=== PATIENT | female | born 1945 | race Caucasian/White ===

== ENCOUNTER 2016-09-01 19:26 | Emergency (ER) | payer MEDICARE ==
[2016-09-01] MEDS ORDERED: DOXYCYCLINE HYCLATE 100 MG TABLET PO ONE (20:44)
[2016-09-01] MEDS ORDERED: ACETAMINOPHEN 325 MG TABLET PO ONE (20:45)
--- NOTE | 2016-09-01 20:46 | ER Document Report ---
ED Skin Rash/Insect Bite/Abscs - General Chief Complaint: Possible insect bite, nausea Stated Complaint: POSSIBLE INSECT BITE,NAUSEA,PAIN Time Seen by Provider: 09/01/16 20:26 Mode of Arrival: Ambulatory Information source: Patient Notes: 71-year-old female presents to ED for rash to the right top of her head. She states she started out with pain in the top of her head and behind her ears and right and for a number of years that her jawline yesterday and the rash appeared today. She has enlarged. TRAVEL OUTSIDE OF THE [place] IN LAST 30 DAYS: No - HPI Patient complains to provider of: Skin rash/lesion, Tender/swollen area Onset: Yesterday Onset/Duration: Gradual Quality of pain: Achy Severity: Moderate Pain Level: 4 Skin Character: Erythema, Rash, Tenderness Skin Temperature: Warm Quality of rash: Painful Exacerbated by: Denies Relieved by: Denies Similar symptoms previously: No Recently seen / treated by doctor: No - Related Data Allergies/Adverse Reactions: Sulfa (Sulfonamide Antibiotics) Allergy (Verified 04/09/15 15:28) Steroids Adverse Reaction (Uncoded 04/09/15 15:28) Uncontrolled Blood Glucose Past Medical History - General Information source: Patient - Social History Smoking Status: Never Smoker Cigarette use (# per day): No Chew tobacco use (# tins/day): No Smoking Education Provided: No Frequency of alcohol use: None Drug Abuse: None Lives with: Family Family History: Arthritis, CAD, DM, Hyperlipidemia, Hypertension, Thyroid Disfunction - Past Medical History Cardiac Medical History: Reports: Hx Coronary Artery Disease - HIGH CHOL, Hx Heart Attack - 2009, Hx Hypercholesterolemia, Hx Hypertension Pulmonary Medical History: Reports: Hx Bronchitis, Hx Pneumonia - 06/2009 EENT Medical History: Reports: None Neurological Medical History: Reports: None Endocrine Medical History: Reports: Hx Diabetes Mellitus Type 2 Renal/ Medical History: Reports: Other - bladder cancer Malignancy Medical History: Reports: Other - bladder GI Medical History: Reports: Hx Gastroesophageal Reflux Disease, Hx Ulcerative Colitis, Hx Endoscopy Musculoskeltal Medical History: Reports Hx Arthritis, Reports Hx Musculoskeletal Trauma Skin Medical History: Reports None Psychiatric Medical History: Reports: Hx Anxiety, Hx Depression Traumatic Medical History: Reports: Hx Spine Fracture Infectious Medical History: Reports: None Past Surgical History: Reports: Hx Breast Surgery - lumpectomy, Hx Cardiac Catheterization, Hx Cholecystectomy, Hx Genitourinary Surgery - bladder cancer removed, Hx Hysterectomy - PARTIAL, Hx Orthopedic Surgery - carpal tunnel left hand - Immunizations Hx Diphtheria, Pertussis, Tetanus Vaccination: Yes Hx Pneumococcal Vaccination: 06/24/09 Review of Systems - Review of Systems Constitutional: No symptoms reported EENT: No symptoms reported, Other - enlarged painful lymphnodes to bilateral in front and behind the ears. rash to top of head with cellulitis Cardiovascular: No symptoms reported Respiratory: No symptoms reported Gastrointestinal: No symptoms reported Genitourinary: No symptoms reported Female Genitourinary: No symptoms reported Musculoskeletal: No symptoms reported Skin: Rash - with cellulitis to top of forehead and 3.5 cm into hair line Hematologic/Lymphatic: No symptoms reported Neurological/Psychological: No symptoms reported -: Yes All other systems reviewed and negative Physical Exam - Vital signs Vitals: Temp Pulse BP Pulse Ox 98.3 F 67 129/48 H 96 09/01/16 19:34 09/01/16 19:34 09/01/16 19:34 09/01/16 19:34 Interpretation: Normal - General General appearance: Appears well, Alert - HEENT Head: Normocephalic, Atraumatic, Tenderness, Other - Enlarged lymph nodes also lymph nodes in the parotid area that are enlarged cellulitis with a rash to the forehead and 3-4 cm above the hairline Eyes: Normal Pupils: PERRL - Respiratory Respiratory status: No respiratory distress Chest status: Nontender Breath sounds: Normal Chest palpation: Normal - Cardiovascular Rhythm: Regular Heart sounds: Normal auscultation Murmur: No - Abdominal Inspection: Normal Distension: No distension Bowel sounds: Normal Tenderness: Nontender Organomegaly: No organomegaly - Back Back: Normal, Nontender - Extremities General upper extremity: Normal inspection, Nontender, Normal color, Normal ROM , Normal temperature General lower extremity: Normal inspection, Nontender, Normal color, Normal ROM , Normal temperature, Normal weight bearing. No: Bassam's sign - Neurological Neuro grossly intact: Yes Cognition: Normal Orientation: AAOx4 Phillips Coma Scale Eye Opening: Spontaneous Phillips Coma Scale Verbal: Oriented Phillips Coma Scale Motor: Obeys Commands Caitie Coma Scale Total: 15 Speech: Normal Motor strength normal: LUE, RUE, LLE, RLE Sensory: Normal - Psychological Associated symptoms: Normal affect, Normal mood - Skin Skin Temperature: Warm Skin Moisture: Dry Skin Color: Normal Location of irregularity: Face, Scalp, Other - enlarged painful lymphnodes to bilateral areas in front and behind the ears. rash to top of head with cellulitis Course - Re-evaluation Re-evalutation: 09/01/16 21:[address] Bee for the rash with tender and swollen lymph nodes. He stated that it was folliculitis and should be placed on doxycycline and antibiotic ointment to the area. - Vital Signs Vital signs: Temp Pulse Resp BP Pulse Ox 98.3 F 67 129/48 H 96 09/01/16 19:34 09/01/16 19:34 09/01/16 19:34 09/01/16 19:34 Discharge - Discharge Clinical Impression: Folliculitis Additional Instructions: Folliculitis You have a skin infection called folliculitis. This occurs when bacteria infect the hair follicles of the skin. Typically, redness and small pustules are found where hair shafts enter the skin. Allergy, surface irritation, shaving, and exposure to hot tubs predispose to folliculitis. The usual treatment is antibiotic ointment, sometimes combined with cortisone-type medication. Warm compresses are often used. If the infection has moved deeper into the skin, oral antibiotics may be necessary. To avoid future episodes of folliculitis, you must identify (if possible) the factors which allowed this infection to start. If you develop increasing pain, swelling, fever, or red streaks, call the doctor or return for re-evaluation. Soap Cleansing Gently wash the wound daily using a mild soap (like Ivory, Phisoderm, Neutrogena). Use warm water, rubbing gently until all debris, ooze, and crusting have been washed from the wound. Allow to dry briefly (about 10 minutes) after cleaning. Repeat this cleansing at least three times a day for the first two days and then once or twice a day. Antibiotic Ointment Protection Your wounds are such that dressing them is not practical or optional. After cleansing, you should apply a thin coating of antibiotic ointment ( Bacitracin, not Neosporin) to the wounds at least three times daily. This lessens infection risk, and may decrease the amount of scarring. Use a q-tip or dull butter knife, not your finger, to apply this ointment. Any debris or ooze which builds up in the ointment should be gently rubbed off with a sterile gauze pad. Harder crusting may need to be gently scrubbed off with a clean wash cloth with soap and warm water, perhaps applying a warm, wet wash cloth to the wound for ten minutes first. Development of redness, severe itching, or blistering may mean allergy to the ointment. See the doctor. Doxycycline Doxycycline (Vibramycin, Doryx) is an antibiotic of the tetracycline family. This type of drug is useful for infections of the respiratory tract and genital tract, and is sometimes used for intestinal infections. Unlike most tetracyclines, doxycycline can be taken with food. It is longer acting, and (usually) less prone to side effects than regular tetracycline. Tetracycline antibiotics can stain immature teeth and SHOULD NOT BE TAKEN BY CHILDREN, NURSING MOTHERS, OR WOMEN. Tetracyclines can make you more prone to sunburn. Abdominal cramping, nausea, and diarrhea are occasional side effects. Women may experience vaginal yeast infections. Call the doctor at once if you develop hives, itching, shortness of breath , or lightheadedness. Acetaminophen Acetaminophen may be taken for pain relief or fever control. It's much safer than aspirin, offering a wider range of "safe" dosages. It is safe during . Some brand names are Tylenol, Panadol, Datril, Anacin 3, Tempra, and Liquiprin. Acetaminophen can be repeated every four hours. The following are maximum recommended dosages: WEIGHT Dose Drops Elixir Chewable( 80mg) (LBS.) drprs=droppers tsp=teaspoon 6 40 mg .4 ml (1/2) 6-11 80 mg .8 ml (full) 1/2 tsp 1 tab 12-16 120 mg 1 1/2 drprs 3/4 tsp 1 1/2 tabs 17-23 160 mg 2 drprs 1 tsp 2 tabs 24-30 240 mg 3 drprs 1 1/2 tsp 3 tabs 30-35 320 mg 2 tsp 4 tabs 36-41 360 mg 2 1/4 tsp 4 1 /2 tabs 42-47 400 mg 2 1/2 tsp 5 tabs 48-53 480 mg 3 tsp 6 tabs 54-59 520 mg 3 1/4 tsp 6 1 /2 tabs 60-64 560 mg 3 1/2 tsp 7 tabs 65-70 600 mg 3 3/4 tsp 7 1 /2 tabs 71-76 640 mg 4 tsp 8 tabs 77-82 720 mg 4 1/2 tsp 9 tabs 83-88 800 mg 5 tsp 10 tabs >89 pounds or adults 650 mg to 900 mg Acetaminophen can be repeated every four hours. Maximum daily dose not to exceed 4000 mg. These maximum recommended dosages are slightly higher than the dosages written on the product container, but these dosages are very safe and well below the toxic dosage for acetaminophen. FOLLOW-UP CARE: If you have been referred to a physician for follow-up care, call the physician s office for an appointment as you were instructed or within the next two days. If you experience worsening or a significant change in your symptoms, notify the physician immediately or return to the Emergency Department at any time for re-evaluation. Prescriptions: Doxycycline Hyclate 100 mg PO BID #20 tablet Forms: Elevated Blood Pressure Referrals: FLETCHER BENOIT MD [Primary Care Provider] - Follow up in 3-5 days
[2016-09-01 21:18] VITALS: BP 131/51
== END 2016-09-01 21:10 | disposition home or self-care (01) ==
LOC: ER 19:26
DX: L73.9 Follicular disorder, unspecified (principal); R59.0 Localized enlarged lymph nodes; I25.10 Atherosclerotic heart disease of native coronary artery without angina pectoris; I25.2 Old myocardial infarction; I10 Essential (primary) hypertension; E11.9 Type 2 diabetes mellitus without complications; Z85.51 Personal history of malignant neoplasm of bladder; Z88.2 Allergy status to sulfonamides
CPT/HCPCS: 99282; A9270 ×2

== ENCOUNTER 2016-09-04 13:43 | Emergency (ER) | payer MEDICARE ==
[2016-09-04 14:16] VITALS: BP 125/66
== END 2016-09-04 16:30 | disposition left against medical advice (07) ==
LOC: ER 13:43
DX: Z53.21 Procedure and treatment not carried out due to patient leaving prior to being seen by health care provider (principal)

== ENCOUNTER 2017-05-04 12:03 | Emergency (ER) | payer MEDICARE ==
[2017-05-04] MEDS ORDERED: IPRATROPIUM/ALBUTEROL 0.5-2.5 MG/3 ML AMPUL NEB ONE (12:52)
--- NOTE | 2017-05-04 13:16 | RADIOLOGY REPORT (SQ) ---
EXAM DESCRIPTION: CT HEAD WITHOUT COMPLETED DATE/TIME: 05/04/2017 1:06 pm REASON FOR STUDY: headache, question frontal sinusitis COMPARISON: None. TECHNIQUE: Axial images acquired through the brain without intravenous contrast. Images reviewed wi th bone, brain and subdural windows. Images stored on PACS. All CT scanners at this facility use dose modulation, iterative reconstruction, and/or weight based d osing when appropriate to reduce radiation dose to as low as reasonably achievable (ALARA). [facility]: Dose Right [facility]: CareDose [facility]: Dose Right [facility]: Teradose 4D [facility]: [employer] RADIATION DOSE: CT Rad equipment meets quality standard of care and radiation dose reduction techniq ues were employed. CTDIvol: 64.6 mGy. DLP: 1034 mGy-cm.mGy. LIMITATIONS: None. FINDINGS: VENTRICLES: Prominent. CEREBRUM: No mass effect. No hemorrhage. No midline shift. Areas of low density in the white matte r most likely due to chronic micro-vascular ischemic change. No evidence for acute territorial infar ction. CEREBELLUM: No hemorrhage. No alteration of density. No evidence for acute infarction. EXTRAAXIAL SPACES: Age-related involutional change. No fluid collections. ORBITS AND GLOBE: Symmetrical contour of the globes. CALVARIUM: No depressed fracture. PARANASAL SINUSES: There is mild mucosal thickening throughout the paranasal sinuses and ethmoid air cells. Mucous retention cysts/ polyps at the right maxillary sinus. No air-fluid levels. SOFT TISSUES: No hematoma. IMPRESSION: 1. No acute intracranial hemorrhage or acute territorial infarct. Chronic changes of a trophy and microvascular ischemia. 2. Mild mucosal thickening throughout the paranasal sinuses and ethmoid air cells. Mucous retention cysts/polyps at the right maxillary sinus. EVIDENCE OF ACUTE STROKE: NO. TECHNICAL DOCUMENTATION: JOB ID: [id number] UT-64 Quality ID # [id number]: Final reports with documentation of one or more dose reduction techniques (e.g., Au tomated exposure control, adjustment of the mA and/or kV according to patient size, use of iterative reconstruction technique) 2010 [employer]- All Rights Reserved
[2017-05-04 13:27] LABS: ABSOLUTE BASOPHILS # (AUTO) 0.1 10^3/uL (0.0-0.2); ABSOLUTE EOSINOPHILS # (AUTO) 0.5 10^3/uL (0.0-0.6); ABSOLUTE LYMPHOCYTES (AUTO) 1.7 10^3/uL (0.5-4.7); ABSOLUTE MONOCYTES (AUTO) 0.5 10^3/uL (0.1-1.4); ABSOLUTE NEUT (AUTO) 6.6 10^3/uL (1.7-8.2); BASOPHILS % (AUTO) 0.8 % (0-2); EOSINOPHILS % (AUTO) 4.9 % (0-6); HEMATOCRIT 40.3 % (36.0-47.0); LYMPHOCYTES % (AUTO) 18.3 % (13-45); MEAN CORPUSCULAR HEMOGLOBIN 29.6 pg (27.0-33.4); MEAN CORPUSCULAR HGB CONC 34.7 g/dL (32.0-36.0); MEAN CORPUSCULAR VOLUME 85 fl (80-97); MONOCYTES % (AUTO) 5.2 % (3-13); RED BLOOD COUNT 4.73 10^6/uL (3.72-5.28); RED CELL DISTRIBUTION WIDTH 13.8 % (11.5-14.0); SEGMENTED NEUTROPHILS % (AUTO) 70.8 % (42-78); TOTAL CELLS COUNTED % (AUTO) 100 %; WHITE BLOOD COUNT 9.4 10^3/uL (4.0-10.5)
--- NOTE | 2017-05-04 13:36 | RADIOLOGY REPORT (SQ) ---
EXAM DESCRIPTION: CHEST PA/LAT COMPLETED DATE/TIME: 05/04/2017 1:13 pm REASON FOR STUDY: cough, CP COMPARISON: 04/09/2015. EXAM PARAMETERS: NUMBER OF VIEWS: two views TECHNIQUE: Digital Frontal and Lateral radiographic views of the chest acquired. RADIATION DOSE: NA LIMITATIONS: none FINDINGS: LUNGS AND PLEURA: No infiltrate, masses or pneumothorax. No pleural effusion. MEDIASTINUM AND HILAR STRUCTURES: No masses or contour abnormalities. HEART AND VASCULAR STRUCTURES: Heart normal size. No evidence for failure. BONES: There is an old left anterior 6th rib fracture. HARDWARE: None in the chest. OTHER: Chest leads are in place. IMPRESSION: NO ACUTE DISEASE. TECHNICAL DOCUMENTATION: JOB ID: [id number] SC-69 2010 [employer]- All Rights Reserved
[2017-05-04 13:42] LABS: PLATELET COUNT 304 10^3/uL (150-450)
[2017-05-04 13:55] LABS: ALANINE AMINOTRANSFERASE 31 U/L (9-52); ALBUMIN 4.4 g/dL (3.5-5.0); ALKALINE PHOSPHATASE 48 U/L (38-126); ANION GAP 11 (5-19); ASPARTATE AMINO TRANSFERASE 19 U/L (14-36); BILIRUBIN,DIRECT 0.3 mg/dL (0.0-0.4); BILIRUBIN,TOTAL 0.3 mg/dL (0.2-1.3); BLOOD UREA NITROGEN 21 mg/dL (7-20); CALCIUM 9.9 mg/dL (8.4-10.2); CARBON DIOXIDE 27 mmol/L (22-30); CHLORIDE 103 mmol/L (98-107); GLUCOSE 217 mg/dL (75-110); MAGNESIUM 1.6 mg/dL (1.6-2.3); POTASSIUM 3.9 mmol/L (3.6-5.0); SODIUM 140.8 mmol/L (137-145); TOTAL PROTEIN 6.6 g/dL (6.3-8.2)
[2017-05-04 14:07] LABS: NT PRO BNP 74 pg/mL (5-900)
[2017-05-04 14:08] LABS: TROPONIN I < 0.012 ng/mL
[2017-05-04] MEDS ORDERED: ALBUTEROL SULFATE HFA (90 MCG/PUFF) 8 GM MDI (1 MDI/ER DISP) IH PRN (14:23)
[2017-05-04] MEDS ORDERED: AMOXICILLIN TRIHYD 250 MG CAPSULE PO ONE (14:25)
--- NOTE | 2017-05-04 14:33 | ER Document Report ---
ED General - General Chief Complaint: Breathing Difficulty Stated Complaint: DIFFICULTY BREATHING Time Seen by Provider: 05/04/17 12:31 Mode of Arrival: Ambulatory Information source: Patient TRAVEL OUTSIDE OF THE [place] IN LAST 30 DAYS: No - HPI Notes: Patient is a 72-year-old female quit smoking 8 years ago presents emergency department with report of a 2 month history of cough congestion and wheezing. The patient reports occasional associated fever. She describes minimal pleuritic chest discomfort only associated with the cough. She denies any radiation of the chest discomfort she reports some associated back discomfort with her cough also. She denies any nausea vomiting or diarrhea. Patient has never been on inhalers or nebulizer treatments in the past. She states her blood sugars have been slightly more erratic lately. No lower extremity edema or history of CHF. - Related Data Allergies/Adverse Reactions: Sulfa (Sulfonamide Antibiotics) Allergy (Verified 05/04/17 12:04) Steroids Adverse Reaction (Uncoded 05/04/17 12:04) Uncontrolled Blood Glucose Past Medical History - Social History Smoking Status: Former Smoker Chew tobacco use (# tins/day): No Frequency of alcohol use: None Drug Abuse: None Lives with: Family, Spouse/Significant other Family History: Arthritis, CAD, DM, Hyperlipidemia, Hypertension, Thyroid Disfunction Patient has suicidal ideation: No Patient has homicidal ideation: No - Past Medical History Cardiac Medical History: Reports: Hx Coronary Artery Disease - HIGH CHOL, Hx Heart Attack - 2009, Hx Hypercholesterolemia, Hx Hypertension Pulmonary Medical History: Reports: Hx Bronchitis, Hx Pneumonia - 06/2009 Denies: Hx Asthma, Hx COPD Neurological Medical History: Denies: Hx Cerebrovascular Accident, Hx Seizures Endocrine Medical History: Reports: Hx Diabetes Mellitus Type 2 Renal/ Medical History: Denies: Hx Peritoneal Dialysis GI Medical History: Reports: Hx Gastroesophageal Reflux Disease, Hx Ulcerative Colitis, Hx Endoscopy Musculoskeltal Medical History: Reports Hx Arthritis, Reports Hx Musculoskeletal Trauma Psychiatric Medical History: Reports: Hx Anxiety, Hx Depression Traumatic Medical History: Reports: Hx Spine Fracture Past Surgical History: Reports: Hx Abdominal Surgery - hernia, Hx Breast Surgery - lumpectomy, Hx Cardiac Catheterization, Hx Cholecystectomy, Hx Genitourinary Surgery - bladder cancer removed, Hx Hysterectomy, Hx Orthopedic Surgery - carpal tunnel left hand - Immunizations Hx Diphtheria, Pertussis, Tetanus Vaccination: Yes Hx Pneumococcal Vaccination: 03/20/10 Review of Systems - Review of Systems Notes: REVIEW OF SYSTEMS: CONSTITUTIONAL : No significant weight loss. EENT: Denies eye, ear, throat, or mouth pain or symptoms. Denies throat, tongue, or mouth swelling or difficulty swallowing. CARDIOVASCULAR: Denies chest pain. Denies palpitations or racing or irregular heart beat. Denies ankle edema. RESPIRATORY: Reports occasional shortness of breath associated with cough and with exertion. GASTROINTESTINAL: Denies abdominal pain or distention. Denies nausea, vomiting , or diarrhea. Denies blood in vomitus, stools, or per rectum. Denies black, tarry stools. Denies constipation. GENITOURINARY: Denies difficulty urinating, painful urination, burning, frequency, blood in urine, or discharge. FEMALE GENITOURINARY: Denies vaginal bleeding, heavy or abnormal periods, irregular periods. Denies vaginal discharge or odor. MUSCULOSKELETAL: Denies back or neck pain or stiffness. Denies joint pain or swelling. SKIN: Denies rash, lesions or sores. HEMATOLOGIC : Denies easy bruising or bleeding. LYMPHATIC: Denies swollen, enlarged glands. NEUROLOGICAL: Denies confusion or altered mental status. Denies passing out or loss of consciousness. Denies dizziness or lightheadedness. Denies headache. Denies weakness or paralysis or loss of use of either side. Denies problems with gait or speech. Denies sensory loss, numbness, or tingling. Denies seizures. PSYCHIATRIC: Denies anxiety or stress. Denies depression, suicidal ideation, or homicidal ideation. ALL OTHER SYSTEMS REVIEWED AND NEGATIVE. Dictation was performed using [employer] voice recognition software Physical Exam - Vital signs Vitals: Temp Pulse Resp BP Pulse Ox 98.7 F 69 20 102/76 96 05/04/17 12:13 05/04/17 12:13 05/04/17 12:13 05/04/17 12:13 05/04/17 12:13 - Notes Notes: PHYSICAL EXAMINATION: GENERAL: Well-appearing, well-nourished and in no acute distress. HEAD: Atraumatic, normocephalic. EYES: Pupils equal round and reactive to light, extraocular movements intact, conjunctiva are normal. ENT: Moist mucous membranes. Mild coryza noted. NECK: Normal range of motion, supple without lymphadenopathy LUNGS: Breath sounds scant wheeze to auscultation bilaterally and equal. No rales or rhonchi. HEART: Regular rate and rhythm without murmurs ABDOMEN: Soft, nontender, nondistended abdomen. No guarding, no rebound. No masses appreciated. Obese. Female : deferred Musculoskeletal: Normal range of motion, no pitting or edema. No cyanosis. Negative Homans. NEUROLOGICAL: Cranial nerves grossly intact. Normal speech, normal gait. Normal sensory, motor exams PSYCH: Normal mood, normal affect. SKIN: Warm, Dry, normal turgor, no rashes or lesions noted. Course - Re-evaluation Re-evalutation: 05/04/17 14:35 After DuoNeb, the patient had significant improvement in her wheezing and her cough. On repeat exam her O2 sat was 97% with respiratory rate of 17. There is no evidence for pneumonia or congestive heart failure or significant anemia or diabetic complications. No clinical suggestion for cardiac ischemia. No evidence for pulmonary embolus. - Vital Signs Vital signs: Temp Pulse Resp BP Pulse Ox 98.7 F 69 22 H 121/51 L 95 05/04/17 12:13 05/04/17 12:13 05/04/17 13:13 05/04/17 12:24 05/04/17 13:13 - Laboratory Result Diagrams: 05/04/17 12:23 05/04/17 13:20 Laboratory results interpreted by me: 05/04/17 13:20 BUN 21 H Glucose 217 H - EKG Interpretation by [place] EKG shows normal: Sinus rhythm Additional EKG results interpreted by me: 05/04/17 14:36 EKG as interpreted by la showed normal sinus rhythm heart rate of 66. There is no gross evidence for acute NH or ischemia noted. There is no change from previous EKG reviewed from 04/09/15. Discharge - Discharge Clinical Impression: Dehydration COPD (chronic obstructive pulmonary disease) Qualifiers: COPD type: unspecified COPD Qualified Code(s): J44.9 - Chronic obstructive pulmonary disease, unspecified Headache Qualifiers: Headache type: unspecified Headache chronicity pattern: acute headache Intractability: not intractable Qualified Code(s): R51 - Headache Condition: Stable Disposition: HOME, SELF-CARE Instructions: Chronic Obstructive Lung Disease ([facility]), Dehydration ([facility]) Additional Instructions: Return to the emergency department in case of fever, chest pain, difficulty breathing. No hydrochlorothiazide tomorrow, then cut the dose of hydrochlorothiazide in half. Prescriptions: Tramadol HCl [Ultram 50 mg Tablet] 50 mg PO Q4HP PRN #20 tab PRN Reason: Albuterol Sulfate [Proair HFA Inhalation Aerosol 8.5 gm MDI] 2 puff IH Q4H PRN # 1 mdi PRN Reason: Amoxicillin 1 tab PO TID #30 tab Referrals: FLETCHER BENOIT MD [Primary Care Provider] - Follow up as needed
[2017-05-04 14:36] VITALS: BP 111/47
--- NOTE | 2017-05-05 01:32 | EKG REPORT ---
SEVERITY:- NORMAL ECG - SINUS RHYTHM : Confirmed by: Archana Roy MD 05-May-2017 01:31:54
== END 2017-05-04 14:58 | disposition home or self-care (01) ==
LOC: ER 12:03
DX: J44.9 Chronic obstructive pulmonary disease, unspecified (principal); E86.0 Dehydration; R51 Headache; R05 Cough; R06.02 Shortness of breath; I25.10 Atherosclerotic heart disease of native coronary artery without angina pectoris; I10 Essential (primary) hypertension; E11.9 Type 2 diabetes mellitus without complications; I25.2 Old myocardial infarction; Z87.01 Personal history of pneumonia (recurrent); Z87.891 Personal history of nicotine dependence; Z88.2 Allergy status to sulfonamides
CPT/HCPCS: 99285; 36415; 83735; 85025; 80053; 84484; 83880; 71046; 70450; 93005; A9270 ×2; J3490; 93010; J7620